=== PATIENT | female | born 1985 | race Two or more races ===

== ENCOUNTER 2019-03-07 09:07 | Emergency (ER) | payer OTHER ==
[2019-03-07 09:16] VITALS: BP 121/79; PULSE 89; TEMP 98.4; BMI 24.5
[2019-03-07] MEDS ORDERED: KETOROLAC TROMETHAMINE 30 MG/1 ML VIAL IM ONE (10:09)
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
[2019-03-07] MEDS ORDERED: KETOROLAC TROMETHAMINE 30 MG/1 ML VIAL ONE (10:23)
[2019-03-07 10:32] LABS: EPI CELLS 8.2 /HPF (0-5/HPF); HYALINE CASTS 15 /lpf (0-8); PH,URINE 5.5 (5.0-8.0); URINE APPEARANCE CLEAR; URINE BACTERIA 70.3 /hpf (NEGATIVE); URINE BILIRUBIN NEGATIVE (NEGATIVE); URINE COLOR YELLOW; URINE GLUCOSE (UA) NEGATIVE (NEGATIVE); URINE KETONE TRACE (NEGATIVE); URINE LEUK ESTERASE TRACE (NEGATIVE); URINE NITRITE NEGATIVE (NEGATIVE); URINE PROTEIN NEGATIVE (NEGATIVE); URINE RBC 3 /hpf (0-4); URINE WBC 3 /hpf (0-5)
== END 2019-03-07 11:18 | disposition home or self-care (01) ==
LOC: JERFT 09:07
PROC: 3E0233Z Introduction of Anti-inflammatory into Muscle, Percutaneous Approach (ICD-10-PCS; principal; 2019-03-07)
DX: B34.9 Viral infection, unspecified (principal); M79.18 Myalgia, other site
CPT/HCPCS: 81003; 84703; 87086; 96372; 99282-25

== ENCOUNTER 2020-01-07 08:03 | Emergency (ER) | payer OTHER ==
[2020-01-07 08:07] VITALS: BMI 25.4
[2020-01-07] MEDS ORDERED: ONDANSETRON 4 MG/2 ML VIAL IVPUSH ONE (08:07)
[2020-01-07] MEDS ORDERED: SODIUM CHLORIDE 1,000 ML IV STA (08:07)
--- NOTE | 2020-01-07 08:09 | PDOC ---
Rapid Medical Evaluation Chief Complaint: Nausea/Vomiting Time Seen by Provider: 01/07/20 08:05 Medical Evaluation: Allergies Allergy/AdvReac Type Severity Reaction Status Date / Time No Known Allergies Allergy Verified 03/07/19 10:09 01/07/20 08:05 Pt is a 34 y/o F with no PMH who presents to the ER with vomiting and dizziness since last night. Exam: epigastric discomfort Orders: labs, IV Pt to proceed to the ER for further evaluation Discharge Disposition - Diagnosis Dizziness - Referrals - Patient Instructions - Post Discharge Activity
[2020-01-07] MEDS ORDERED: FAMOTIDINE 20 MG/50 ML IVPB 20 MG/50 ML MG IVPB ONE (09:14)
[2020-01-07 09:27] LABS: BASO % 0.8 % (0-2.0); EOS % 0.8 % (0-4.5); HEMATOCRIT 37.8 % (32.4-45.2); HEMOGLOBIN 12.2 GM/dL (10.7-15.3); LYMPH % 15.9 % (8-40); MCH 28.6 pg (25.7-33.7); MCHC 32.2 g/dl (32.0-36.0); MEAN CELL VOLUME 88.9 fl (80-96); MEAN PLT VOLUME 8.5 fl (7.5-11.1); MONO % 11.3 % (3.8-10.2); NEUT % 71.2 % (42.8-82.8); PLATELET COUNT 258 K/MM3 (134-434); RBC 4.25 M/mm3 (3.60-5.2); RDW 15.5 % (11.6-15.6); WHITE BLOOD COUNT 4.8 K/mm3 (4.0-10.0)
[2020-01-07 09:52] LABS: BLOOD UREA NITROGEN 9.2 mg/dL (7-18); CALCIUM 9.1 mg/dL (8.5-10.1); CREATININE 0.7 mg/dL (0.55-1.3); POTASSIUM 4.5 mmol/L (3.5-5.1); TOT PROT 7.7 g/dl (6.4-8.2)
[2020-01-07 09:53] LABS: BILIRUBIN,TOTAL 0.5 mg/dL (0.2-1)
[2020-01-07 10:25] VITALS: BP 121/65; PULSE 74; TEMP 97.7
[2020-01-07 10:30] LABS: HCG,QUALITATIVE URINE Negative
[2020-01-07 10:40] LABS: URINE APPEARANCE CLEAR; URINE BILIRUBIN NEGATIVE (NEGATIVE); URINE COLOR YELLOW; URINE GLUCOSE (UA) NEGATIVE (NEGATIVE); URINE KETONE TRACE (NEGATIVE); URINE LEUK ESTERASE NEGATIVE (NEGATIVE); URINE NITRITE NEGATIVE (NEGATIVE); URINE PROTEIN NEGATIVE (NEGATIVE); URINE UROBILINOGEN 0.2 mg/dL (0.2-1.0)
--- NOTE | 2020-01-07 11:14 | PDOC ---
Documentation entered by Lashanda Bobby SCRIBE, acting as scribe for Maico Arroyo MD. Maico Arroyo MD: This documentation has been prepared by the Kanu armas Brenda, SCRIBE, under my direction and personally reviewed by me in its entirety. I confirm that the documentation accurately reflects all work, treatment, procedures, and medical decision making performed by me. History of Present Illness - General Chief Complaint: Nausea/Vomiting Stated Complaint: DIZZINESS Time Seen by Provider: 01/07/20 08:05 History Source: Patient Exam Limitations: No Limitations - History of Present Illness Initial Comments: 01/07/20 09:13 The patient is a 34 year old female with no significant PMH who presents to the emergency department for evaluation of 3 episodes of vomiting since last night and nausea. The patient notes that she had 1 beer last night along with a salad prior to vomiting. She also endorses chills and an empty feeling her abdomen. Also reports weakness and pain in her legs. The patient denies chest pain, shortness of breath, headache and dizziness. Denies fever, diarrhea and constipation. Denies dysuria, frequency, urgency and hematuria. Allergies: NKA Social history: No reported hx of tobacco use or illicit drug use. Past History - Medical History Allergies/Adverse Reactions: Allergies Allergy/AdvReac Type Severity Reaction Status Date / Time No Known Allergies Allergy Verified 01/07/20 08:07 Home Medications: Ambulatory Orders Famotidine [Pepcid -] 20 mg PO BID #14 tablet 01/07/20 Ondansetron [Zofran *Odt*] 4 mg SL BID #14 od.tablet 01/07/20 COPD: No - Immunization History Immunization Up to Date: No - Psycho-Social/Smoking History Smoking History: Never smoked Have you smoked in the past 12 months: No - Substance Abuse Hx (Audit-C & DAST Scrn) How often the patient has a drink containing alcohol: Never Score: In Men: 4 or > Positive; In Women: 3 or > Positive: 0 Screen Result (Pos requires Nsg. Audit-10AR): Negative Review of Systems - Review of Systems Able to Perform ROS?: Yes Comments:: 01/07/20 09:17 CONSTITUTIONAL: No fever, no chills, no fatigue EYES: No visual changes ENT: No ear pain, no sore throat CARDIOVASCULAR: No chest pain, no palpitations RESPIRATORY: No cough, no SOB GI: (+) Vomiting (+) nausea. No constipation, no diarrhea GENITOURINARY: No dysuria, no frequency, no hematuria MUSKULOSKELETAL: No backpain, no joint pain, no myalgias SKIN: No rash NEURO: No headache *Physical Exam - Vital Signs Last Vital Signs Temp Pulse Resp BP Pulse Ox 98 F 81 18 128/79 100 01/07/20 08:04 01/07/20 08:04 01/07/20 08:04 01/07/20 08:04 01/07/20 08:04 - Physical Exam 01/07/20 09:20 CONSTITUTIONAL: Well-appearing; well-nourished; in no apparent distress HEAD: Normocephalic; atraumatic EYES: PERRL; EOM intact ENMT: External appears normal; normal oropharynx NECK: Supple; non-tender; no cervical lymphadenopathy CARD: Normal S1, S2; no murmurs, rubs, or gallops RESP: Normal chest excursion with respiration; breath sounds clear and equal bilaterally; no wheezes, rhonchi, or rales ABD: Soft, non-distended; non-tender; no palpable organomegaly, no palpable hernias EXT: Normal ROM in all four extremities; non-tender to palpation; distal pulses intact SKIN: Warm, dry, no rash NEURO: No focal neurological deficiencies. ED Treatment Course - LABORATORY CBC & Chemistry Diagram: 01/07/20 09:00 01/07/20 08:47 Medical Decision Making - Medical Decision Making 01/07/20 11:10 Patient is a 34-year-old well-appearing female who presents with mild epigastric discomfort, and several episodes of nonbloody, nonbilious vomiting associated with nausea. Patient is afebrile and nontoxic-appearing. Initial abdominal exam revealed minimal epigastric and left lower quadrant tenderness to deep palpation, without guarding rebound. Repeat exams revealed no focal tenderness. Patient is received IV fluids, Zofran and H2 blockers. On reassessment, patient is asymptomatic, pain-free, with no focal tenderness; patient tolerates p.o. I do not suspect acute appendicitis or cholecystitis or diverticulitis or SBO. Will discharge with Zofran and H2 blockers with outpatient follow-up. Discharge - Discharge Information Problems reviewed: Yes Clinical Impression/Diagnosis: Abdominal pain Qualifiers: Abdominal location: epigastric Qualified Code(s): R10.13 - Epigastric pain Nausea and vomiting Qualifiers: Vomiting type: unspecified Vomiting Intractability: non-intractable Qualified Code(s): R11.2 - Nausea with vomiting, unspecified Condition: Stable Disposition: HOME - Follow up/Referral Referrals: José Ching MD [Primary Care Provider] - - Patient Discharge Instructions Patient Printed Discharge Instructions: DI for Nausea -- Adult, DI for Vomiting -- Adult, DI for Abdominal Pain-Adult Print Language: ICELANDIC - Post Discharge Activity
--- NOTE | 2020-01-08 11:29 | EKG ---
Test Reason : Blood Pressure : / mmHG Vent. Rate : 075 BPM Atrial Rate : 075 BPM P-R Int : 132 ms QRS Dur : 072 ms QT Int : 378 ms P-R-T Axes : 068 053 046 degrees QTc Int : 422 ms NORMAL SINUS RHYTHM NORMAL ECG NO PREVIOUS ECGS AVAILABLE Confirmed by МАРИЯ SILVA MD ([id number]) on 01/08/2020 11:28:49 AM Referred By: Confirmed By:МАРИЯ SILVA MD
== END 2020-01-07 11:27 | disposition home or self-care (01) ==
LOC: JER 08:03
PROC: 3E033GC Introduction of Other Therapeutic Substance into Peripheral Vein, Percutaneous Approach (ICD-10-PCS; principal; 2020-01-07)
PROC: 3E0337Z Introduction of Electrolytic and Water Balance Substance into Peripheral Vein, Percutaneous Approach (ICD-10-PCS; 2020-01-07)
DX: R42 Dizziness and giddiness (principal); R10.13 Epigastric pain; R11.2 Nausea with vomiting, unspecified
CPT/HCPCS: 36415; 80053; 81003; 83690; 84703; 85025; 93005; 93010; 99284-25

== ENCOUNTER 2024-10-09 07:51 | Emergency (ER) | payer OTHER ==
[2024-10-09 08:01] VITALS: BP 143/89; PULSE 77; RESP 20; TEMP 98.5; BMI 21.6
[2024-10-09 08:52] LABS: ABSOLUTE IMMATURE GRANULOCYTES 0.02 x10^3/uL (0.0-0.031); BASOPHILS # 0.03 x10^3/uL (0.01-0.08); EOSINOPHIL % 2.8 % (0.7-5.8); EOSINOPHILS # 0.27 x10^3/uL (0.04-0.36); HEMATOCRIT 38.9 % (34.1-44.9); HEMOGLOBIN 12.3 g/dL (11.2-15.7); MCHC 31.6 g/dl (32.2-35.5); MEAN CELL VOLUME 88.8 fl (79.4-94.8); MEAN PLT VOLUME 9.7 fl (9.4-12.3); MONOCYTE # 0.75 x10^3/uL (0.24-0.86); MONOCYTE % 7.9 % (4.7-12.5); PLATELET COUNT 284 x10^3/uL (182-369)
[2024-10-09] MEDS ORDERED: IBUPROFEN 600 MG TABLET (FP) PO ONE (09:05)
[2024-10-09] MEDS ORDERED: ACETAMINOPHEN 500 MG TABLET (FP) ONE (09:05)
[2024-10-09] MEDS: IBUPROFEN 600 MG TABLET (FP) PO ONE (09:06)
[2024-10-09] MEDS: ACETAMINOPHEN 500 MG TABLET (FP) PO ONE (09:07)
[2024-10-09 09:19] LABS: ALBUMIN 4.1 g/dl (3.4-5.0); CALCIUM 9.7 mg/dL (8.5-10.1)
[2024-10-09 09:20] LABS: BLOOD UREA NITROGEN 10.6 mg/dL (7-18)
[2024-10-09 09:23] LABS: CREATININE 0.7 mg/dL (0.55-1.3)
[2024-10-09 09:24] LABS: BILIRUBIN,TOTAL 0.6 mg/dL (0.2-1); TOT PROT 7.6 g/dl (6.4-8.2)
[2024-10-09 11:23] LABS: HCV DIAGNOSTIC IN-HOUSE W/RFLX NON-REACTIVE (NONREACTIVE); HIV INTERPRETATION NEGATIVE (NEGATIVE)
== END 2024-10-09 11:45 | disposition home or self-care (01) ==
LOC: JERFT 07:51
DX: R07.2 Precordial pain (principal); R09.81 Nasal congestion; R09.82 Postnasal drip; J30.2 Other seasonal allergic rhinitis
CPT/HCPCS: 36415; 71046-TC-FY; 80053; 84484; 84703; 85025; 86803; 87389; 93005; 93010; 99285-25